=== PATIENT | female | born 1995 | race African-American/Black ===

== ENCOUNTER 2022-06-08 07:20 | Emergency (ER) | payer BC ==
[~2022-06-08] VITALS: Ht 157.5 cm; Wt 59.9 kg
[2022-06-08 07:23] VITALS: BP 124/79
--- NOTE | 2022-06-08 07:40 | NUR ---
26YO FEMALE PT C/O VAGINAL BLEEDING XTODAY. PT STATES SHES WAS WAS GIVEN PILL "MISTOPROLOL" ON WEDNESDAY DUE TO " NO HEART BEAT " AND "EMPTY SAC" AT 7 WEEKS. PT WENT TO BE SEEN AT [facility] DUE TO N/V/D WHERE SHE WAS THEN COMFIRMED A HEART BEAT AT ABOUT " 130". DENIES BLOOD IN V/D. PT C/O NEW ONSET OF "PINK" VAGINAL SPOTTING ALONG W/ CRAMPING 06/17 PELVIC AND LOWER BACK PAIN XTHIS MORNING. PT DENIES TAKING MEDICATION FOR PAIN. DENIES SOB, CHEST OR ABDOMINAL PAIN. PT ABDOMEN NON DISTENDED OR TENDER TO TOUCH . PT AAOX4, NO VISIBLE DISTRESS. RESPIRATIONS EVEN AND UNLABORED. HOB POSITIONED PER COMFORT. HX: DENIES
--- NOTE | 2022-06-08 07:40 | NUR ---
Note undone in EDM - 06/08/22 at 0802 by [facility] PILL "MISTOPROLOL" ON WEDNESDAY DUE TO " NO HEART BEAT " AND "EMPTY SAC" AT 7 WEEKS. PT WENT TO BE SEEN AT [facility] DUE TO N/V/D WHERE SHE WAS THEN COMFIRMED A HEART BEAT AT ABOUT " 130". DENIES BLOOD IN V/D. PT C/O NEW ONSET OF "PINK" VAGINAL SPOTTING ALONG W/ CRAMPING 8/10 PELVIC AND LOWER BACK PAIN XTHIS MORNING. PT DENIES TAKING MEDICATION FOR PAIN. DENIES SOB, CHEST OR ABDOMINAL PAIN. PT ABDOMEN NON DISTENDED OR TENDER TO TOUCH . PT AAOX4, NO VISIBLE DISTRESS. RESPIRATIONS EVEN AND UNLABORED. HOB POSITIONED PER COMFORT. HX: DENIES NKA
--- NOTE | 2022-06-08 07:53 | NUR ---
DR LINDO AT BEDSIDE EVALUATING PT
--- NOTE | 2022-06-08 08:08 | NUR ---
US AT BEDSIDE
[2022-06-08] MEDS ORDERED: ACETAMINOPHEN EXTRA STRENGTH 500 MG TAB PO ONE (08:10)
--- NOTE | 2022-06-08 08:15 | NUR ---
26/F PRESENTS TO ED WITH C/O VAGINAL BLEEDING TODAY. PER PATIENT SHE WAS 7 WEEKS AND WAS TOLD ON WEDNESDAY AT [facility] [place] THAT THERE WAS NO HEART BEAT AND WAS GIVEN MISTOPROLOL. PER PATIENT SHE RETURNED TO [facility] YESTERDAY DUE TO N/V/D AND WAS TOLD THERE WAS A HEART BEAT DETECTED. TODAY PATIENT REPORTS WAKING UP WITH LIGHT PINK VAGINAL SPOTTING AND CRAMPING. PATIENT DENIES FEVERS, CHILLS, CP OR SOB.
[2022-06-08 08:16] LABS: BASOPHILS % (AUTO) 0.5 % (0.0-2.0); EOSINOPHILS # (AUTO) 0.1 K/uL (0-0.4); EOSINOPHILS % (AUTO) 0.8 % (0.0-4.0); HEMATOCRIT 33.4 % (36-48); HEMOGLOBIN 11.7 g/dL (12.0-16.0); LYMPHOCYTES # (AUTO) 1.8 K/uL (2.5-16.5); LYMPHOCYTES % (AUTO) 21.6 % (20.5-51.1); MEAN CORPUSCULAR HEMOGLOBIN 33 pg (27-31); MEAN CORPUSCULAR HGB CONC 35 g/dL (33-37); MEAN CORPUSCULAR VOLUME 94.2 fL (80-94); MONOCYTES # (AUTO) 0.5 K/uL (0.8-1.0); MONOCYTES % (AUTO) 6.2 % (1.7-9.3); NEUTROPHILS # (AUTO) 5.9 K/uL (1.8-7.7); NEUTROPHILS % (AUTO) 70.9 % (42.2-75.2); PLATELET COUNT (AUTO) 273 K/uL (140-450); RED BLOOD CELL COUNT(AUTO) 3.55 MIL/uL (4.20-5.40); RED CELL DISTRIBUTION WIDTH 11.8 % (11.6-13.7); WHITE BLOOD COUNT (AUTO) 8.4 K/uL (4.8-10.8)
--- NOTE | 2022-06-08 08:54 | NUR ---
PT AMBULATORY TO RESTROOM
--- NOTE | 2022-06-08 08:56 | NUR ---
PT AMBULATORY BACK TO ROOM
[2022-06-08 09:39] LABS: APPEARANCE,URINE SL CLOUDY (CLEAR); BILIRUBIN,URINE NEGATIVE (NEGATIVE); BLOOD, URINE 2+ (NEGATIVE); COLOR,URINE YELLOW (YELLOW); LEUKOCYTE ESTERASE ,URINE NEGATIVE (NEGATIVE); NITRITE, URINE NEGATIVE (NEGATIVE); PH,URINE 6.5 (5.0-9.0); UGLUCOSE NEGATIVE (NEGATIVE)
--- NOTE | 2022-06-08 09:55 | NUR ---
pt provided with snacks
[2022-06-08 09:58] LABS: WBC,URINE 0-5 /HPF (0-5); YEAST,URINE Few /HPF (None Seen)
[2022-06-08 09:59] LABS: OTHER CASTS, URINE None Seen /LPF (None Seen); RED BLOOD CELL CASTS,URINE 0-10 /LPF (None Seen)
[2022-06-08] MEDS ORDERED: NITR100C7 PO (10:46)
[2022-06-08] MEDS ORDERED: DOXY1TCP PO (11:05)
[2022-06-08 11:07] VITALS: BP 137/80
--- NOTE | 2022-06-08 11:07 | NUR ---
Patient discharged with v/s stable. Written and verbal after care instructions FOR THREATENED MISSCARRIAGE , 1ST TRIMESTER OF AND UTI given and explained. Patient alert, oriented and verbalized understanding of instructions. Ambulatory with steady gait. All questions addressed prior to discharge. ID band removed. Patient advised to follow up with PMD. Rx of MACROBID given. Opportunity to ask questions provided and answered.
--- NOTE | 2022-06-08 11:13 | NUR ---
The patient's care was reviewed and supervised by Gala Mendenhall RN.
== END 2022-06-08 11:07 | disposition home or self-care (01) ==
LOC: MED 07:20
DX: O20.0 Threatened abortion (principal); F12.90 Cannabis use, unspecified, uncomplicated; Z3A.01 Less than 8 weeks gestation of pregnancy; Z72.89 Other problems related to lifestyle
CPT/HCPCS: 36415; 76817; 81001; 81025; 84702; 85025; 86900; 86901; 87086; 99285; Q0092

== ENCOUNTER 2022-12-23 13:02 | Emergency (ER) | payer BC, MEDICAID ==
[~2022-12-23] VITALS: Ht 157.5 cm; Wt 67.1 kg
[~2022-12-23 13:02] MED LIST: DOXY1TCP PO; NITR100C7 PO
[2022-12-23 13:47] VITALS: BP 149/77
[2022-12-23] MEDS ORDERED: KETOROLAC 60 MG/2 ML VIAL IM ONE (14:15)
[2022-12-23] MEDS ORDERED: ONDANSETRON 4 MG ODT PO ONE (14:15)
[2022-12-23 14:30] LABS: BASOPHILS % (AUTO) 0.5 % (0.0-2.0); EOSINOPHILS # (AUTO) 0.1 K/uL (0-0.4); EOSINOPHILS % (AUTO) 0.7 % (0.0-4.0); HEMATOCRIT 38.9 % (36-48); HEMOGLOBIN 13.4 g/dL (12.0-16.0); LYMPHOCYTES # (AUTO) 2.6 K/uL (2.5-16.5); LYMPHOCYTES % (AUTO) 25.7 % (20.5-51.1); MEAN CORPUSCULAR HEMOGLOBIN 33 pg (27-31); MEAN CORPUSCULAR HGB CONC 35 g/dL (33-37); MEAN CORPUSCULAR VOLUME 94.4 fL (80-94); MONOCYTES # (AUTO) 0.7 K/uL (0.8-1.0); MONOCYTES % (AUTO) 6.7 % (1.7-9.3); NEUTROPHILS # (AUTO) 6.8 K/uL (1.8-7.7); NEUTROPHILS % (AUTO) 66.4 % (42.2-75.2); PLATELET COUNT (AUTO) 310 K/uL (140-450); RED BLOOD CELL COUNT(AUTO) 4.12 MIL/uL (4.20-5.40); RED CELL DISTRIBUTION WIDTH 11.8 % (11.6-13.7); WHITE BLOOD COUNT (AUTO) 10.2 K/uL (4.8-10.8)
--- NOTE | 2022-12-23 14:47 | NUR ---
ASSUMED PATIENT CARE, NURSING ASSESSMENT COMPLETED. ULTRASOUND AT BEDSIDE.
[2022-12-23 14:54] LABS: ALBUMIN 2.2 g/dL (3.4-5.0); ANION GAP 8.6 (8-16); CARBON DIOXIDE 29.9 mmol/L (21-32); CREATININE 0.8 mg/dL (0.6-1.3); POTASSIUM 3.5 mmol/L (3.5-5.1)
[2022-12-23] MEDS ORDERED: ACET-5629 PO (15:31)
[2022-12-23] MEDS ORDERED: ONDA8TAB87 PO (15:31)
--- NOTE | 2022-12-23 15:37 | NUR ---
DISPO AND MEDICAL DECISION MAKING, DC HOME WITH AFTERCARE INSTRUCTIONS AND E-RX. ALL INSTRUCTIONS UNDERSTOOD BY PATIENT WELL, VS WNL. DC [facility] AMBULATORY, PAIN RESOLVED.
[2022-12-23 15:38] VITALS: BP 122/65
== END 2022-12-23 15:38 | disposition home or self-care (01) ==
LOC: MED 13:02
DX: M25.572 Pain in left ankle and joints of left foot (principal); M25.571 Pain in right ankle and joints of right foot
CPT/HCPCS: 36415; 80053; 85025; 93970; 96372; 99285; J1885; Q0092; Q0162